=== PATIENT | male | born 1950 | race Caucasian/White ===

== ENCOUNTER 2020-11-22 10:39 | Emergency (ER) | payer MEDICARE, BC ==
[~2020-11-22] VITALS: Ht 182.9 cm; Wt 121.8 kg
[2020-11-22 10:57] VITALS: BP 124/79
[2020-11-22] MEDS ORDERED: dexamethasone 4mg tablet PO ONE (11:10)
[2020-11-22] MEDS ORDERED: ketorolac trometh. 30mg/ml inj. IM ONE (11:30)
[2020-11-22] MEDS ORDERED: acetaminophen 325mg tablet PO ONE (11:30)
[2020-11-22] MEDS ORDERED: ONDA4TAB6 PO (12:26)
[2020-11-22] MEDS ORDERED: DEXA6TAB6 PO (12:26)
== END 2020-11-22 13:02 | disposition home or self-care (01) ==
LOC: ER 10:39
DX: U07.1 COVID-19 (principal); Z79.899 Other long term (current) drug therapy
CPT/HCPCS: 71045; 87635; 96372; 99284; C9803; J1885